=== PATIENT | male | born 1960 | race Caucasian/White ===

== ENCOUNTER 2025-02-08 18:36 | Emergency (ER) | payer OTHER, SELFPAY ==
[2025-02-08] VITALS (15 sets, daily range): BP systolic 134–164; BP diastolic 92–135; PULSE 85–107; RESP 23–30; TEMP 36.4–38.5; O2SAT 100
--- NOTE | ~2025-02-08 | XR_ITS ---
Examination: XR chest ET placement Clinical History: ET tube, AMS Comparison: None Technique: Portable AP Findings: ET tube, NG tube. Heart size normal. Lungs clear. No acute bony abnormality. IMPRESSION: 1. No acute cardiopulmonary findings given portable technique. 2. ET tube in place. 3. NG tube sidehole at GE junction, recommend further advancement. Reviewed, dictated and finalized at location R.
--- NOTE | ~2025-02-08 | CT_ITS ---
CT HEAD NON-CONTRAST Clinical History: AMS, possible bleed Comparison: None Technique: Unenhanced axial images skull base to vertex Coronal, sagittal reformats CT images acquired with automatic exposure control for dose reduction DLP: 757 mGy-cm Findings: Large left holohemispheric subdural hemorrhage, 23 mm maximal diameter. Mild tracking along falx. 21 mm left to right midline shift. Sulci, ventricles: Entrapped posterior horn right lateral ventricle. Attenuated left lateral ventricle. Uncal herniation left side. No evidence acute territorial infarct. Bony calvarium intact. Visualized paranasal sinuses: Clear. Mastoid air cells: Clear. Findings conveyed via telephone by myself to Dr. Carlos Hung at 8:51 PM AMMONIUM NITRATE CRYSTALLIZER. IMPRESSION: 1. Large subdural hemorrhage left hemisphere, 23 mm diameter. 2. 21 mm [id number] subfalcine herniation. 3. Uncal herniation left side. Reviewed, dictated and finalized at location . IMPRESSION: 1. Large subdural hemorrhage left hemisphere, 23 mm diameter. 2. 21 mm [id number] subfalcine herniation. 3. Uncal herniation left side.
--- NOTE | ~2025-02-08 | XR_ITS ---
Abdominal radiograph(s) INDICATION: NG tube COMPARISON: None TECHNIQUE: Single portable supine AP abdomen FINDINGS/IMPRESSION: 1. Single film includes lower chest and upper abdomen; pelvis excluded. 2. NG tube sidehole at GE junction, recommend further advancement. 3. Scattered mesenteric gas, nonspecific pattern. Reviewed, dictated and finalized at location R.
--- NOTE | 2025-02-08 18:37 | ECG_ITS ---
Test Date: 2025-02-08 18:37:55 Measurements Intervals [place] Rate: 84 P: 85 FL: 143 QRS: 81 QRSD: 89 T: 75 QT: 368 QTc: 437 Interpretive Statements SINUS RHYTHM WITH SINUS ARRHYTHMIA RIGHT ATRIAL ENLARGEMENT [0.3mV P-WAVE] LEFT ATRIAL ENLARGEMENT [-0.15mV P-WAVE IN V1/V2] No previous ECG available for comparison Electronically Signed On 02-09-2025 09:24:37 CDT by Flavio Pichardo M.D.
--- NOTE | 2025-02-08 18:43 | PC.NURSE ---
Addendum entered by Florence Vail RN 02/08/25 18:50: 7.5 ETT placed 25 at the teeth. Original Note: EDP Dr. Bryson at bedside intubated pt at 184 30 of etomidate given at 1840 100 succs given at 1840
--- NOTE | 2025-02-08 18:45 | ED.AMS ---
HPI - Altered Mental Status General Chief Complaint: Altered Mental Status Stated Complaint: Unresponsive Time Seen by Provider: 02/08/25 18:43 History of Present Illness HPI narrative: Patient is a 64-year-old male who presents ER after being found down. He had been down for 2 hours. Arrival patient has decorticate posturing with sternal rub. No outward signs of trauma to the head. He has increased tone in the arms and legs. Emergently intubated. No additional history provided. Patient has not been here recently. Outside medications search only shows sildenafil and albuterol. Per EMS patient has history of methamphetamine abuse. Related Data Allergies Allergy/AdvReac Type Severity Reaction Status Date / Time No Known Allergies Allergy Unverified 02/26/15 12:41 Review of Systems Review of Systems: ROS unobtainable: Yes unobtainable due to medical condition [facility] Past Medical History Medical History (Updated 02/08/25 @ 20:00 by Carlos Hung MD) Erectile dysfunction Surgical History Surgical History (Updated 02/08/25 @ 19:58 by Carlos Hung MD) Surgical history unknown Exam Narrative: GENERAL: Ill-appearing, decorticate posturing. HEAD: Normocephalic, atraumatic. EYES: Left pupil dilated and minimally responsive. Eyes deviated to the left. ENT: Mucous membranes moist. CHEST: Clear to auscultation. No respiratory distress. HEART: Regular rate and rhythm. Normal peripheral pulses. ABDOMEN: Soft, nontender, nondistended. EXTREMITIES: No deformity of the upper lower extremities. Patient does have increased tone when attempting range of motion. SKIN: Warm, dry, no rash. NEURO: GCS 5. Eyes 1 point, verbal 1 point, motor 3 points. Decorticate posturing. Course Course Emergency Course: 1939: I have disussed the patients condition and diagnosis with his daughter Elizabeth. She can be reached at [phone]. The patient has no power of estate planning attorney. He is not . He has a daughter Elizabeth and another son. She has been in contact with the son and he does not want to have any contact with his father or involvement in decision making. She would like the patient transferred to [facility] for definitive treatment of his subdural hemorrhage. 1948: Discussed case with in [facility]. They accept the patient for transfer. Patient be transported by air medical transport due to the emergent nature of his illness and likely need for decompressive procedure. Rectal Tylenol given for temperature. Drug screen positive for amphetamines and cocaine. Patient is on propofol for sedation. 1999: Air medical transport present and is receiving bedside report for transfer. Mannitol considered but it is stocked in pharmacy, it will be quicker to get the patient to [facility]. 2005: Patients daughter updated. Vital Signs Vital signs: Vital Signs Temperature 97.6 F 02/08/25 18:30 Pulse Rate 93 02/08/25 18:30 Respiratory Rate 30 H 02/08/25 18:30 Blood Pressure 145/92 H 02/08/25 18:30 Pulse Oximetry 100 02/08/25 18:30 Oxygen Delivery Bag Valve Mask 02/08/25 18:30 Temperature 101.2 F H 02/08/25 19:46 Pulse Rate 85 02/08/25 19:51 Respiratory Rate 25 H 02/08/25 19:51 Blood Pressure 134/96 H 02/08/25 19:46 Pulse Oximetry 100 02/08/25 19:46 Oxygen Delivery Mechanical Ventilation 02/08/25 19:16 Procedures Intubation Intubation #1: Intubation Date: 02/08/25 Intubation Time: 18:46 Time out performed: Yes sedative: Etomidate Mg Given: 30 paralytic: Succinylcholine Mg Given: 100 Laryngoscope: Chirag (3) Tube Size (cm): 7.5 Method of Intubation: orotracheal Number of Attempts: 1 Tube Secured Depth (cm): 25 Tube Secured Location: teeth Tube Placement Confirmation: visualized tube passing through cords, equal breath sounds bilaterally, no breath sounds over epigastrium and confirmation by capnometry Patient Tolerated Procedure: well MDM - Altered Mental Status Lab Data 02/08/25 19:08 02/08/25 19:08 Labs: Lab Results 02/08/25 02/08/25 Range/Units 19:08 19:08 WBC 16.7 H (4.5-10.0) K/mm3 RBC 4.32 L (4.6-6.20) M/mm3 Hgb 14.1 (14.0-18.0) g/dL Hct 41.5 L (42.0-52.0) % MCV 96.1 (80-100) fl MCH 32.6 (26-34) pg MCHC 34.0 (32-36) g/dl RDW 12.4 (11.5-14.5) % Plt Count 240 (150-375) k/mm3 MPV 10.8 H (7.4-10.4) fl Immature Gran % (Auto) 0.5 (0-0.5) % Neut % (Auto) 83.1 H (45.5-73.1) % Lymph % (Auto) 2.8 L (18.3-44.2) % [place] % (Auto) 13.4 H (2.6-8.5) % Eos % (Auto) 0.0 (0-4.4) % Baso % (Auto) 0.2 (0.2-1.2) % Lymph # (Auto) 0.46 L (0.9-3.2) K/mm3 [place] # (Auto) 2.2 H (0.1-0.6) K/mm3 Eos # (Auto) 0.0 (0-0.3) K/mm3 Baso # (Auto) 0.0 (0.0-0.1) K/mm3 Abs Immat Gran (auto) 0.08 H (0.00-0.031) K/mm3 Absolute Neuts (auto) 13.9 H (1.3-6.7) K/mm3 Absolute Nucleated RBC 0.000 (0.0-0.012) K/mm3 Nucleated RBC % 0.0 (0.0-0.2) % PT 14.4 (11.1-14.7) Seconds INR 1.1 APTT 29.1 (22.3-36.8) Seconds Sodium 139 (137-145) mmol/L Potassium 3.8 (3.4-5.0) mmol/L Chloride 102 (98-107) mmol/L Carbon Dioxide 27 (22-30) mmol/L Anion Gap 10 (4-12) mmol/L BUN 11 (9-20) mg/dL Creatinine 0.70 (0.7-1.3) mg/dL Estim Creat Clear Calc 76 ml/min Estimated GFR > 60 (59 - ) Glucose 161 H (65-110) mg/dL Calcium 9.1 (8.4-10.2) mg/dL Total Bilirubin 2.5 H (0.2-1.3) mg/dL AST 124 H (17-59) U/L ALT 70 H (6-50) U/L Alkaline Phosphatase 97 (38-126) U/L Troponin I 0.026 (0.000-0.034) ng/mL Total Protein 7.5 (6.3-8.2) g/dL Albumin 4.5 (3.5-5.1) g/dL Triglycerides 55 Cancelled (<150) mg/dL Urine Color Pending Urine Appearance Pending Urine pH Pending Ur Specific [place] Pending Urine Protein Pending Urine Glucose (UA) Pending Urine Ketones Pending Ur Blood (Man) Pending Urine Nitrate Pending Urine Bilirubin Pending Urine Urobilinogen Pending Leukocyte Esterase Rfl Pending Salicylates < 1.0 L (2-20) mg/dL Urine Opiates Screen Negative (Negative) Urine Methadone Screen Negative (Negative) Acetaminophen < 10 L (10-30) ug/mL Ur Barbiturates Screen Negative (Negative) Ur Phencyclidine Scrn Negative (Negative) Ur Amphetamine Screen Positive A (Negative) U Benzodiazepines Scrn Negative (Negative) Urine Cocaine Screen Positive A (Negative) U Cannabinoids Screen Negative (Negative) Ethyl Alcohol < 10 (<10) mg/dL Imaging Data Radiologist's impression: ITS Impressions Head CT 02/08/25 19:39 IMPRESSION: 1. Large subdural hemorrhage left hemisphere, 23 mm diameter. 2. 21 mm [id number] subfalcine herniation. 3. Uncal herniation left side. Critical Care Time Critical Care Time Critical Care Time: Yes Total Critical Care Time: 45 Discharge Plan Discharge Clinical Impression: Subdural hemorrhage, Midline shift of brain, Uncal herniation Patient Disposition: Acute Care Hospital Condition: Critical Patient Language: Welsh Follow-up/Referrals: PHYSICIAN,FURNITURE FABRICATOR [Primary Care Provider, Internal Medicine]
--- NOTE | 2025-02-08 18:48 | PC.NURSE ---
Addendum entered by Florence Vail RN 02/08/25 19:28: OG placed 65* at the gums Original Note: OG placed at this time. 55 at the gums. confirmation with auscultation
[2025-02-08] MEDS: PROPOFOL IV EMULSION 100 ML 1.76 MG IV CONT (18:52)
[2025-02-08] MEDS: RAPID SEQUENCE INTUBATION KIT 1 EACH (19:10)
[2025-02-08 19:20] LABS: Hematocrit 41.5 % (42.0-52.0); Hemoglobin 14.1 g/dL (14.0-18.0); Immature Granulocyte Percent A 0.5 % (0-0.5); Lymphocytes Absolute Auto 0.46 K/mm3 (0.9-3.2); Mean Corpuscular HGB Conc 34.0 g/dl (32-36); Mean Corpuscular Hemoglobin 32.6 pg (26-34); Mean Corpuscular Volume 96.1 fl (80-100); Nucleated Red Blood Cells Absolute Auto 0.000 K/mm3 (0.0-0.012); Nucleated Red Blood Cells Perc 0.0 % (0.0-0.2); Platelet Count Result 240 k/mm3 (150-375); Red Blood Count 4.32 M/mm3 (4.6-6.20); White Blood Count 16.7 K/mm3 (4.5-10.0)
[2025-02-08] MEDS: ACETAMINOPHEN 650 MG SUPPOSITORY RECTAL (19:22)
[2025-02-08 19:28] LABS: Add Urine Microscopic? YES; Appearance Urine Clear (Clear); Glucose Urine UA 2+ mg/dL (Negative); Leukocyte Esterase Ur Negative LEU/UL (Negative); Nitrate Urine Negative (Negative); Non Pathogenic Casts 0-2; Specific Grav Ur 1.025 (1.001-1.035)
[2025-02-08 19:32] LABS: Alanine Aminotransferase 70 U/L (6-50); Albumin Level 4.5 g/dL (3.5-5.1); Alkaline Phosphatase 97 U/L (38-126); Anion Gap 10 mmol/L (4-12); Aspartate Amino Transferase 124 U/L (17-59); Bilirubin,Total 2.5 mg/dL (0.2-1.3); Blood Urea Nitrogen 11 mg/dL (9-20); Calcium 9.1 mg/dL (8.4-10.2); Carbon Dioxide 27 mmol/L (22-30); Chloride 102 mmol/L (98-107); Estimated CRCL calculation 76 ml/min; Estimated Glomerular Filt Rate > 60; Glucose 161 mg/dL (65-110); Potassium 3.8 mmol/L (3.4-5.0); Sodium 139 mmol/L (137-145); Total Protein 7.5 g/dL (6.3-8.2); Triglycerides 55 mg/dL (<150)
[2025-02-08 19:36] LABS: INR 1.1; Prothrombin Time 14.4 Seconds (11.1-14.7)
[2025-02-08 19:37] LABS: Partial Thromboplastin Time 29.1 Seconds (22.3-36.8)
[2025-02-08 19:43] LABS: Cannabinoid Screen Urine Negative (Negative); Troponin I 0.026 ng/mL (0.000-0.034)
[2025-02-08 19:55] LABS: Acetaminophen < 10 ug/mL (10-30); Salicylate < 1.0 mg/dL (2-20)
--- NOTE | 2025-02-08 20:26 | PC.NURSE ---
Report to Pretty Harrison Report to Marvin and Air[facility]Evac team members
== END 2025-02-08 20:27 | disposition short-term general hospital (02) ==
PROVIDERS: Emergency Provider Emergency Medicine
DX: S06.5X3A Traumatic subdural hemorrhage with loss of consciousness of 1 hour to 5 hours 59 minutes, initial encounter (principal); S06.A1XA Traumatic brain compression with herniation, initial encounter; X58.XXXA Exposure to other specified factors, initial encounter
CPT/HCPCS: 31500; 36415; 36600; 70450; 80053; 80143; 80179; 80307; 81001; 82077; 84478; 84484; 85025; 85610; 85730; 93005; 96365; 99291; A9270; J0330; J2704